=== PATIENT | male | born 1945 | race Caucasian/White ===

== ENCOUNTER 2018-02-23 10:08 | Outpatient (CLI) | payer MEDICARE ==
[2018-02-23 17:57] LABS: PT - PROTHROMBIN TIME 42.5 secs (9.9-12.6)
== END 2018-02-23 10:09 | disposition home or self-care (01) ==
LOC: LAB.F 10:08
PROVIDERS: ATTEND Pharmacist
DX: I48.91 Unspecified atrial fibrillation (principal); I35.1 Nonrheumatic aortic (valve) insufficiency; Z95.2 Presence of prosthetic heart valve
CPT/HCPCS: 36415; 85610

== ENCOUNTER 2018-03-09 09:26 | Outpatient (CLI) | payer MEDICARE | END 2018-03-09 09:27 | disposition home or self-care (01) | LOC: LAB.S 09:26 | PROVIDERS: ATTEND Pharmacist | DX: I48.91 Unspecified atrial fibrillation (principal); I35.1 Nonrheumatic aortic (valve) insufficiency; Z95.2 Presence of prosthetic heart valve; Z79.01 Long term (current) use of anticoagulants | CPT/HCPCS: 85610 ==

== ENCOUNTER 2018-03-12 10:08 | Outpatient (CLI) | payer MEDICARE | END 2018-03-12 10:09 | disposition home or self-care (01) | LOC: LAB.F 10:08 | PROVIDERS: ATTEND Pharmacist | DX: I48.91 Unspecified atrial fibrillation (principal); I35.1 Nonrheumatic aortic (valve) insufficiency; Z95.2 Presence of prosthetic heart valve; Z79.01 Long term (current) use of anticoagulants | CPT/HCPCS: 85610 ==